=== PATIENT | male | born 1950 ===

== ENCOUNTER 2019-02-16 03:01 | Outpatient (CLI) | payer SELFPAY ==
[2019-02-16 09:05] LABS: CHOL/HDL RATIO 5.17 (0.00-4.99)
[2019-02-16 09:09] LABS: HEMOGLOBIN A1C 5.9 % (4.5-6.2)
== END 2019-02-16 23:59 | disposition home or self-care (01) ==
LOC: HW HEART 03:01
DX: Z13.6 Encounter for screening for cardiovascular disorders (principal); R00.1 Bradycardia, unspecified
CPT/HCPCS: 36415